=== PATIENT | female | born 1960 | race Caucasian/White ===

== ENCOUNTER 2017-11-04 11:57 | Emergency (ER) | payer OTHER ==
--- NOTE | 2017-11-04 12:07 | UC ---
Lower Extremity/Ankle HPI - HPI Summary HPI Summary: 56 yo female presents with RIGHT great toe pain for the last few weeks. She tells me that her pain is intermittent, but notices that it is worse after wearing shoes for a long period of time. She thought she may have had an ingrown toenail, so she cut the toenail very short. Denies injury, drainage, or bleeding. - History of Current Complaint Stated Complaint: RT FOOT COMPLAINT Time Seen by Provider: 11/04/17 12:07 Hx Obtained From: Patient Onset/Duration: Gradual Onset Severity Currently: None Pain Intensity: 0 Pain Scale Used: 0-10 Numeric Aggravating Factor(s): Standing, Ambulation Alleviating Factor(s): Rest Able to Bear Weight: Yes - Allergies/Home Medications Allergies/Adverse Reactions: Allergies Allergy/AdvReac Type Severity Reaction Status Date / Time No Known Allergies Allergy Verified 11/04/17 12:23 Home Medications: Home Medications Lisinopril TAB* [Prinivil TAB*] 5 mg PO DAILY 11/04/17 [History Confirmed ] Statin Cholesterol Med 1 tab PO QPM 11/04/17 [History Confirmed 11/04/17] Review of Systems Constitutional: Negative Skin: Other - RIGHT great toenail pain Respiratory: Negative Neurovascular: Negative Musculoskeletal: Negative Neurological: Negative Psychological: Negative All Other Systems Reviewed And Are Negative: Yes Physical Exam - Summary Physical Exam Summary: GENERAL: NAD. WDWN. No pain distress. SKIN: RIGHT great toe: Nail cut short with thick yellow/brown fungus. Mild TTP overlying nail. No paronychia, erythema, edema, or drainage. Left toenail with similar appearance. No streaking, bleeding, or drainage. CHEST: No accessory muscle use. Breathing comfortably and in no distress. CV: Pulses intact. Cap refill <2sec. NEURO: Alert. CN II-XII grossly intact. PSYCH: Age appropriate behavior. Triage Information Reviewed: Yes Vital Signs: Vital Signs: Temp Pulse Resp BP Pulse Ox 97.4 F 82 18 133/79 98 11/04/17 12:15 11/04/17 12:15 11/04/17 12:15 11/04/17 12:15 11/04/17 12:15 Vital Signs Reviewed: Yes Lower Extremity Course/Dx - Course Course Of Treatment: onychomycosis B/L toenails. Rx for topical efinaconazole. Advised to f/u with podiatry for further eval. - Differential Dx/Diagnosis Provider Diagnoses: Onychomycosis Discharge - Sign-Out/Discharge Documenting (check all that apply): Patient Departure - Discharge Plan Condition: Stable Disposition: HOME Prescriptions: Efinaconazole [Jublia] 10 % TOPICAL DAILY #1 bottle Referrals: Blaine Arora MD [Medical Doctor] - Severo River DPM [Doctor of Podiatric Medicine] - As Soon As Possible Additional Instructions: If you develop a fever, shortness of breath, chest pain, new or worsening symptoms - please call your PCP or go to the ED. - Billing Disposition and Condition Condition: STABLE Disposition: Home
[2017-11-04 12:22] VITALS: BP 133/79
== END 2017-11-04 12:37 | disposition home or self-care (01) ==
LOC: UCCORT 11:57
DX: B35.1 Tinea unguium (principal)
CPT/HCPCS: 99212; G0463

== ENCOUNTER 2018-06-26 11:25 | Emergency (ER) | payer OTHER ==
[2018-06-26 12:04] VITALS: BP 127/74
--- NOTE | 2018-06-26 12:59 | UC ---
Hand/Wrist HPI - HPI Summary HPI Summary: Pt presents with c/o right wrist/distal forearm pain and swelling. Pt is unsure of how she injured it but thinks that she was walking an dfell and "caught herself" on side of wall. Pt woke this morning with distal forearm swelling and pain. - History Of Current Complaint Chief Complaint: UCUpperExtremity Stated Complaint: SP FALL-RT WRIST INJURY Time Seen by Provider: 06/26/18 12:34 Hx Obtained From: Patient ?: No Onset/Duration: Sudden Onset, Lasting Days, Still Present Severity Initially: Moderate Severity Currently: Moderate Pain Intensity: 6 Character Of Pain: Dull, Aching, Stiffness Aggravating Factor(s): Movement Alleviating Factor(s): Rest Associated Signs And Symptoms: Positive: Swelling Related History: Dominant Hand Right - Risk Factors Compartment Syndrome Risk Factors: Pain - Allergies/Home Medications Allergies/Adverse Reactions: Allergies Allergy/AdvReac Type Severity Reaction Status Date / Time No Known Allergies Allergy Verified 06/26/18 12:04 PMH/Surg Hx/FS Hx/Imm Hx Previously Healthy: Yes - Surgical History Surgical History: None - Family History Known Family History: Positive: Cardiac Disease - Social History Occupation: Employed Full-time Lives: With Family Alcohol Use: Daily Alcohol Amount: 4 Substance Use Type: None Smoking Status (MU): Heavy Every Day Tobacco Smoker Amount Used/How Often: 1ppd Have You Smoked in the Last Year: Yes Household Exposure Type: Cigarettes - Immunization History Vaccination Up to Date: No Review of Systems All Other Systems Reviewed And Are Negative: Yes Constitutional: Positive: Negative Skin: Positive: Negative Eyes: Positive: Negative ENT: Positive: Negative Respiratory: Positive: Negative Cardiovascular: Positive: Negative Gastrointestinal: Positive: Negative Genitourinary: Positive: Negative Motor: Positive: Decreased ROM - right forearm and wrist Neurovascular: Positive: Negative Musculoskeletal: Positive: Arthralgia, Decreased ROM, Edema, Myalgia Neurological: Positive: Negative Psychological: Positive: Negative Is Patient Immunocompromised?: No Physical Exam Triage Information Reviewed: Yes Appearance: Well-Appearing Vital Signs: Initial Vital Signs Temp 97.7 F 06/26/18 12:00 Pulse 89 06/26/18 12:00 Resp 18 06/26/18 12:00 BP 127/74 06/26/18 12:00 Pulse Ox 96 06/26/18 12:00 Vital Signs Reviewed: Yes Eye Exam: Normal ENT Exam: Normal Dental Exam: Normal Neck exam: Normal Respiratory: Positive: No respiratory distress Musculoskeletal: Positive: Strength Limited @ - right distal forearm and wrist, ROM Limited @ - right distal forearm and wrist, Edema @ - right distal forearm Neurological Exam: Normal Psychological Exam: Normal Skin Exam: Normal Diagnostics - Radiology No standard instances Radiology Interpretation Completed By: Radiologist Summary of Radiographic Findings: REPORT: The visualized bones are properly aligned and well corticated. Degenerative. changes include mild sclerotic change of the articulating surface between the distal. trapezium and the metacarpal.There is no fracture, dislocation or other focal osseous. abnormality. IMPRESSION: No definite acute fracture or dislocation. Hand/Wrist Course/Dx - Differential Dx/Diagnosis Differential Diagnosis/HQI/PQRI: Contusion, Fracture, Sprain, Strain Provider Diagnosis: Contusion of forearm, right Discharge - Sign-Out/Discharge Documenting (check all that apply): Patient Departure All imaging exams completed and their final reports reviewed: Yes - Discharge Plan Condition: Stable Disposition: HOME Patient Education Materials: Contusion in Adults (ED), R.I.C.E. Treatment (ED) Referrals: Phuong Doherty MD [Primary Care Provider] - If Needed - Billing Disposition and Condition Condition: STABLE Disposition: Home - Attestation Statements Provider Attestation: Per institutional requirements, I have reviewed the chart, however, I was not consulted specifically or made aware of this patient by the midlevel provider. I did not personally evaluate, interact with , or disposition this patient.
== END 2018-06-26 13:44 | disposition home or self-care (01) ==
LOC: UCCORT 11:25
DX: S50.11XA Contusion of right forearm, initial encounter (principal); F17.210 Nicotine dependence, cigarettes, uncomplicated; X58.XXXA Exposure to other specified factors, initial encounter; Y92.9 Unspecified place or not applicable
CPT/HCPCS: 99212; G0463